=== PATIENT | female | born 1960 | race Caucasian/White ===

== ENCOUNTER 2018-03-17 06:01 | Inpatient (IN) | payer MEDICARE, MEDICAID | END 2018-03-25 17:08 | disposition home health service (06) | LOC: MED 3N 03-22 17:45 → S STAY 06:01 → ICU 2S 15:42 | PROC: 4A023N7 Measurement of Cardiac Sampling and Pressure, Left Heart, Percutaneous Approach (ICD-10-PCS; principal; 2018-03-17 12:05) | PROC: 02B50ZZ Excision of Atrial Septum, Open Approach (ICD-10-PCS; 2018-03-17 12:05) | PROC: 02U Heart and Great Vessels, Supplement (ICD-10-PCS; 2018-03-17 12:05) | PROC: B215YZZ Fluoroscopy of Left Heart using Other Contrast (ICD-10-PCS; 2018-03-17 12:05) | PROC: B211YZZ Fluoroscopy of Multiple Coronary Arteries using Other Contrast (ICD-10-PCS; 2018-03-17 12:05) | PROC: B310YZZ Fluoroscopy of Thoracic Aorta using Other Contrast (ICD-10-PCS; 2018-03-17 12:05) | DX: D17.4 Benign lipomatous neoplasm of intrathoracic organs (principal); J96.00 Acute respiratory failure, unspecified whether with hypoxia or hypercapnia; C92.11 Chronic myeloid leukemia, BCR/ABL-positive, in remission; J44.9 Chronic obstructive pulmonary disease, unspecified; I25.10 Atherosclerotic heart disease of native coronary artery without angina pectoris ==

== ENCOUNTER 2018-06-21 11:46 | Emergency (ER) | payer MEDICARE, MEDICAID ==
[~2018-06-21] VITALS: Ht 167.6 cm; Wt 80.0 kg
[~2018-06-21 11:46] MED LIST: ALBU18HF2 INH; ASPI-1265 PO; ATOR10TA PO; METO25TA6 PO
[2018-06-21 11:54] VITALS: BP 147/97
[2018-06-21] MEDS ORDERED: morphine 4 MG/ML inj SYRINge IM ONE (12:50)
[2018-06-21] MEDS ORDERED: ondansetron 4mg rapidly disintigrating tab PO ONE (12:50)
== END 2018-06-21 14:02 | disposition home or self-care (01) ==
LOC: ER 11:47
DX: G62.89 Other specified polyneuropathies (principal); G89.29 Other chronic pain; Z98.890 Other specified postprocedural states; Z88.6 Allergy status to analgesic agent; Z91.040 Latex allergy status; Z88.2 Allergy status to sulfonamides; Z79.82 Long term (current) use of aspirin; Z79.899 Other long term (current) drug therapy
CPT/HCPCS: 96372; 99283; J2270

== ENCOUNTER 2018-06-27 08:26 | Emergency (ER) | payer MEDICARE, MEDICAID ==
[~2018-06-27] VITALS: Ht 167.6 cm; Wt 71.8 kg
[2018-06-27] MEDS ORDERED: HYDROcodone/acetaminophen 10/325mg tab PO ONE (09:50)
--- NOTE | 2018-06-27 10:23 | NUR ---
pt talking with Jose FRIEND regarding "I don't want a norco...I want morphine...the last time I was here they told me I would get morphine", pt has chronic lower back pain radiating to left leg, increased pain x1 week...."I want a shot of morphine", Jose FRIEND gave verbal order for morphine 4mg IM x1 now
[2018-06-27] MEDS ORDERED: morphine 4 MG/ML inj SYRINge IM ONE (10:30)
[2018-06-27 11:04] VITALS: BP 132/79
== END 2018-06-27 11:00 | disposition home or self-care (01) ==
LOC: ER 08:27
DX: G89.29 Other chronic pain (principal); M54.5 Low back pain; Z88.6 Allergy status to analgesic agent; Z91.040 Latex allergy status; Z88.2 Allergy status to sulfonamides; Z79.82 Long term (current) use of aspirin; Z79.899 Other long term (current) drug therapy; Z98.890 Other specified postprocedural states
CPT/HCPCS: 96372; 99283; J2270

== ENCOUNTER 2018-08-02 12:02 | Emergency (ER) | payer MEDICARE, MEDICAID ==
[~2018-08-02] VITALS: Ht 167.6 cm; Wt 158.0 kg
[2018-08-02 13:22] LABS: ALANINE AMINOTRANSFERASE 24 U/L (12-78); ALBUMIN 3.7 G/DL (3.4-5.0); ALKALINE PHOSPHATASE 89 IU/L (46-116); ANION GAP 5 (8-16); ASPARTATE AMINO TRANSFERASE 13 U/L (10-37); BILIRUBIN,TOTAL 0.2 MG/DL (0.1-1.0); BLOOD UREA NITROGEN 9 MG/DL (7-18); BUN/CREATININE RATIO 14.1 (6.6-38.0); CHLORIDE 104 MMOL/L (99-107); CREATININE 0.64 MG/DL (0.40-0.90); GLUCOSE 91 MG/DL (70-104); PARTIAL THROMBOPLASTIN TIME 28 SECONDS (22-32); SODIUM 135 MMOL/L (135-145); TOTAL CARBON DIOXIDE 26.3 MMOL/L (24-32); TOTAL PROTEIN 7.4 G/DL (6.4-8.2); eGFR > 90 ML/MIN
[2018-08-02 13:32] LABS: BASOPHILS # (AUTO) 0.1 X10'3 (0-0.2); BASOPHILS % (AUTO) 1.5 % (0-1); EOSINOPHILS # (AUTO) 0.1 X10'3 (0-0.9); EOSINOPHILS % (AUTO) 1.3 % (0-6); HEMATOCRIT 43.5 % (35.0-45.0); HEMOGLOBIN 15.3 g/dl (12.0-16.0); LYMPHOCYTES # (AUTO) 1.4 X10'3 (1.1-4.8); LYMPHOCYTES % (AUTO) 15.6 % (21-51); MEAN CORPUSCULAR HEMOGLOBIN 32.2 PG (27.0-31.0); MEAN CORPUSCULAR HGB CONC 35.2 g/dL (33.0-36.5); MEAN CORPUSCULAR VOLUME 91.4 FL (78-98); MEAN PLATELET VOLUME 7.7 FL (7.4-10.4); MONOCYTES # (AUTO) 0.5 X10'3 (0-0.9); MONOCYTES % (AUTO) 5.5 % (2-12); NEUTROPHILS # (AUTO) 6.7 X10'3 (1.8-7.7); NEUTROPHILS % (AUTO) 76.1 % (42-75); PLATELET COUNT 248 X10'3 (140-440); RED BLOOD COUNT 4.76 X10'6 (4.20-5.60); RED CELL DISTRIBUTION WIDTH 15.7 % (11.5-14.5); WHITE BLOOD COUNT 8.8 X10'3 (4.5-11.0)
[2018-08-02 14:11] LABS: CLARITY,URINE CLEAR (Clear); COLOR,URINE YELLOW (Yellow); GLUCOSE, URINE NEGATIVE (Neg); KETONES,URINE NEGATIVE (Neg); LEUKOCYTE ESTERASE ,URINE NEGATIVE (Neg); NITRITES, URINE NEGATIVE (Neg); OCCULT BLOOD,URINE NEGATIVE (Neg); PH,URINE 5.5 (4.8-8.0); PROTEIN,URINE NEGATIVE (Neg); UROBILINOGEN,URINE 0.2 E.U/dL (0.2-1.0)
[2018-08-02 14:19] LABS: UA COLLECTION TYPE CLN CATCH MIDSTREAM
[2018-08-02 14:25] LABS: LIPASE 94 U/L (73-393)
[2018-08-02 15:39] VITALS: BP 144/85
== END 2018-08-02 15:41 | disposition home or self-care (01) ==
LOC: ER 12:03
DX: R10.13 Epigastric pain (principal); R10.12 Left upper quadrant pain; G89.29 Other chronic pain; F17.210 Nicotine dependence, cigarettes, uncomplicated; Z90.49 Acquired absence of other specified parts of digestive tract; Z95.1 Presence of aortocoronary bypass graft; Z98.890 Other specified postprocedural states; Z79.899 Other long term (current) drug therapy; Z88.6 Allergy status to analgesic agent; Z91.040 Latex allergy status
CPT/HCPCS: 36415; 71045; 74176; 80053; 81003; 83690; 84484; 85025; 85610; 85730; 93005; 99284

== ENCOUNTER 2020-05-26 10:10 | Emergency (ER) | payer MEDICARE, MEDICAID ==
[~2020-05-26] VITALS: Ht 167.6 cm; Wt 66.8 kg
[~2020-05-26 10:10] MED LIST changes: +LOP25T PO; -METO25TA6 PO
[2020-05-26] MEDS ORDERED: orphenadrine citrate 60mg/2ml inj. IM ONE (11:10)
[2020-05-26] MEDS ORDERED: traMADol 50MG tablet PO ONE (11:10)
[2020-05-26] MEDS ORDERED: ondansetron 4mg rapidly disintigrating tab PO ONE (13:00)
[2020-05-26] MEDS ORDERED: HYDROcodone/acetaminophen 5mg/325mg tablet PO ONE (13:00)
[2020-05-26] MEDS ORDERED: ACET-1025 PO (13:07)
[2020-05-26] MEDS ORDERED: TRAM50TA2 PO (13:07)
[2020-05-26 13:45] VITALS: BP 139/72
== END 2020-05-26 13:43 | disposition home or self-care (01) ==
LOC: ER 10:10
DX: S32.038A Other fracture of third lumbar vertebra, initial encounter for closed fracture (principal); M54.5 Low back pain; G89.29 Other chronic pain; Z90.89 Acquired absence of other organs; Z98.890 Other specified postprocedural states; Z88.8 Allergy status to other drugs, medicaments and biological substances; Z88.2 Allergy status to sulfonamides; Z91.040 Latex allergy status; Z79.82 Long term (current) use of aspirin; Z79.899 Other long term (current) drug therapy; X58.XXXA Exposure to other specified factors, initial encounter; Y93.89 Activity, other specified; Y92.89 Other specified places as the place of occurrence of the external cause; Y99.8 Other external cause status
CPT/HCPCS: 72100; 96372; 99284; J2360

== ENCOUNTER 2020-08-07 10:24 | Emergency (ER) | payer MEDICARE, MEDICAID ==
[~2020-08-07] VITALS: Ht 167.6 cm; Wt 64.1 kg
[2020-08-07 11:13] LABS: BASOPHILS # (AUTO) 0.1 X10'3 (0-0.2); EOSINOPHILS # (AUTO) 0.1 X10'3 (0-0.9); HEMOGLOBIN 14.6 g/dl (12.0-16.0); LYMPHOCYTES # (AUTO) 1.2 X10'3 (1.1-4.8); LYMPHOCYTES % (AUTO) 7.2 % (21-51); MEAN PLATELET VOLUME 7.1 FL (7.4-10.4)
[2020-08-07 11:15] LABS: BASOPHILS % (AUTO) 0.9 % (0-1); EOSINOPHILS % (AUTO) 0.8 % (0-6); HEMATOCRIT 43.6 % (35.0-45.0); MEAN CORPUSCULAR HEMOGLOBIN 31.2 PG (27.0-31.0); MEAN CORPUSCULAR HGB CONC 33.5 g/dL (33.0-36.5); MEAN CORPUSCULAR VOLUME 93.2 FL (78-98); MONOCYTES # (AUTO) 0.8 X10'3 (0-0.9); MONOCYTES % (AUTO) 4.6 % (2-12); NEUTROPHILS # (AUTO) 14.3 X10'3 (1.8-7.7); NEUTROPHILS % (AUTO) 86.5 % (42-75); PLATELET COUNT 255 X10'3 (140-440); RED BLOOD COUNT 4.68 X10'6 (4.20-5.60); WHITE BLOOD COUNT 16.5 X10'3 (4.5-11.0)
[2020-08-07] MEDS ORDERED: aspirin 325mg tablet PO ONE (11:20)
[2020-08-07] MEDS ORDERED: ipratropium/albuterol 3ml nebule NEB ONE (11:20)
[2020-08-07] MEDS ORDERED: predniSONE 20 mg tablet PO ONE (11:20)
[2020-08-07 11:25] LABS: ALANINE AMINOTRANSFERASE 17 U/L (12-78); ALBUMIN 3.5 G/DL (3.4-5.0); ALBUMIN/GLOBULIN RATIO 0.9 (1.1-1.5); ALKALINE PHOSPHATASE 96 IU/L (46-116); ANION GAP 5 (8-16); ASPARTATE AMINO TRANSFERASE 10 U/L (10-37); BILIRUBIN,TOTAL 0.3 MG/DL (0.1-1.0); BLOOD UREA NITROGEN 10 MG/DL (7-18); BUN/CREATININE RATIO 15.9 (6.6-38.0); CALCIUM 8.8 MG/DL (8.5-10.1); CHLORIDE 101 MMOL/L (99-107); CREATININE 0.63 MG/DL (0.40-0.90); GLUCOSE 106 MG/DL (70-104); POTASSIUM 4.2 MMOL/L (3.5-5.1); SODIUM 136 MMOL/L (135-145); TOTAL CARBON DIOXIDE 29.7 MMOL/L (24-32); TOTAL PROTEIN 7.5 G/DL (6.4-8.2); eGFR > 90 ML/MIN
[2020-08-07] MEDS ORDERED: albuterol 2.5 MG/3 ML nebule CONTNEB PRN (11:45)
[2020-08-07 12:16] LABS: LIPASE < 50 U/L (73-393)
[2020-08-07 12:34] LABS: D-DIMER 1.27 MG/L FEU (0-0.50)
[2020-08-07] MEDS ORDERED: iohexol 350MG/ML 100ml bottle IV ONE (13:17)
[2020-08-07] MEDS ORDERED: traMADol 50MG tablet PO ONE (14:35)
[2020-08-07] MEDS ORDERED: LORazepam 2 mg/ml vial IV ONE (14:35)
[2020-08-07 14:52] LABS: ABG BASE EXCESS -2.5 mmol/L (-2.0-2.0); ABG HCO3 22.7 mmol/L (22.0-26.0); ABG OXYGEN SATURATION 87.6 % (94-97); ABG PCO2 (T) 40.1 mmHg (32.0-45.0); ABG PO2 (T) 47.9 mmHg (75.0-100.0); ALLEN'S TEST POSITIVE; FCOHb 3.7 % (0.0-3.9); FMetHb 0.1 % (0.0-1.5); FO2Hb 84.3 % (94-97); PATIENT TEMPERATURE 36.6; TOTAL HEMOGLOBIN 14.3 G/dl (12.0-16.0)
[2020-08-07 15:14] VITALS: BP 111/67
[2020-08-07] MEDS ORDERED: PRED20TA PO (15:35)
[2020-08-07] MEDS ORDERED: AZIT-72 PO (15:35)
--- NOTE | 2020-08-07 16:34 | NUR ---
PT ON MED WAIT, ADVISED NOT TO DRIVE AFTER MEDICATION GIVEN.
== END 2020-08-07 17:04 | disposition home or self-care (01) ==
LOC: ER 10:26
DX: J44.1 Chronic obstructive pulmonary disease with (acute) exacerbation (principal); Z20.822 Contact with and (suspected) exposure to COVID-19; F17.210 Nicotine dependence, cigarettes, uncomplicated; I25.10 Atherosclerotic heart disease of native coronary artery without angina pectoris; G89.29 Other chronic pain; Z90.49 Acquired absence of other specified parts of digestive tract; Z95.1 Presence of aortocoronary bypass graft; Z98.891 History of uterine scar from previous surgery; Z88.6 Allergy status to analgesic agent; Z88.2 Allergy status to sulfonamides; Z91.040 Latex allergy status; Z79.82 Long term (current) use of aspirin; Z79.2 Long term (current) use of antibiotics; Z79.899 Other long term (current) drug therapy; Z85.6 Personal history of leukemia
CPT/HCPCS: 36415; 36600; 71045; 71275; 80053; 82803; 83690; 83880; 84484; 85018; 85025; 85379; 87635; 94640; 96374; 99285; C9803; J2060; J7512; Q9967; 94760; A7015

== ENCOUNTER 2020-09-28 12:53 | Emergency (ER) | payer MEDICARE, MEDICAID ==
[~2020-09-28] VITALS: Ht 167.6 cm; Wt 65.9 kg
[2020-09-28 13:27] LABS: BASOPHILS # (AUTO) 0.1 X10'3 (0-0.2); EOSINOPHILS # (AUTO) 0.1 X10'3 (0-0.9); EOSINOPHILS % (AUTO) 1.1 % (0-6); HEMATOCRIT 45.5 % (35.0-45.0); HEMOGLOBIN 15.2 g/dl (12.0-16.0); LYMPHOCYTES # (AUTO) 1.1 X10'3 (1.1-4.8); LYMPHOCYTES % (AUTO) 13.9 % (21-51); MEAN CORPUSCULAR HEMOGLOBIN 31.7 PG (27.0-31.0); MEAN CORPUSCULAR HGB CONC 33.5 g/dL (33.0-36.5); MEAN CORPUSCULAR VOLUME 94.4 FL (78-98); MEAN PLATELET VOLUME 7.5 FL (7.4-10.4); MONOCYTES # (AUTO) 0.6 X10'3 (0-0.9); MONOCYTES % (AUTO) 7.7 % (2-12); NEUTROPHILS # (AUTO) 5.8 X10'3 (1.8-7.7); NEUTROPHILS % (AUTO) 76.3 % (42-75); PLATELET COUNT 240 X10'3 (140-440); RED BLOOD COUNT 4.81 X10'6 (4.20-5.60); RED CELL DISTRIBUTION WIDTH 15.6 % (11.5-14.5); WHITE BLOOD COUNT 7.6 X10'3 (4.5-11.0)
[2020-09-28 13:42] LABS: ALANINE AMINOTRANSFERASE 13 U/L (12-78); ALBUMIN 3.4 G/DL (3.4-5.0); ALBUMIN/GLOBULIN RATIO 0.9 (1.1-1.5); ALKALINE PHOSPHATASE 90 IU/L (46-116); ANION GAP 10 (8-16); ASPARTATE AMINO TRANSFERASE 9 U/L (10-37); BILIRUBIN,TOTAL 0.2 MG/DL (0.1-1.0); BLOOD UREA NITROGEN 7 MG/DL (7-18); BUN/CREATININE RATIO 9.1 (6.6-38.0); CALCIUM 8.5 MG/DL (8.5-10.1); CHLORIDE 102 MMOL/L (99-107); CREATININE 0.77 MG/DL (0.40-0.90); GLUCOSE 112 MG/DL (70-104); POTASSIUM 3.3 MMOL/L (3.5-5.1); SODIUM 141 MMOL/L (135-145); TOTAL CARBON DIOXIDE 28.9 MMOL/L (24-32); TOTAL PROTEIN 7.3 G/DL (6.4-8.2); eGFR 76 ML/MIN
[2020-09-28] MEDS ORDERED: ondansetron 4mg rapidly disintigrating tab PO ONE (15:55)
[2020-09-28] MEDS ORDERED: morphine 4 MG/ML inj SYRINge IM ONE (15:55)
[2020-09-28 16:11] LABS: LIPASE 64 U/L (73-393)
[2020-09-28 17:05] LABS: CLARITY,URINE SLIGHTLY CLOUDY (Clear); COLOR,URINE YELLOW (Yellow); GLUCOSE, URINE NEGATIVE (Neg); KETONES,URINE NEGATIVE (Neg); LEUKOCYTE ESTERASE ,URINE NEGATIVE (Neg); NITRITES, URINE NEGATIVE (Neg); OCCULT BLOOD,URINE NEGATIVE (Neg); PH,URINE 5.5 (4.8-8.0); PROTEIN,URINE TRACE mg/dl (Neg)
[2020-09-28 17:09] LABS: UA COLLECTION TYPE STRAIGHT CATH
[2020-09-28 17:18] LABS: MUCUS STRANDS MANY /LPF (Neg); SQUAMOUS EPITHELIAL CELL,UR FEW /LPF (FEW)
[2020-09-28 17:19] LABS: BACTERIA,URINE FEW /HPF (Neg); RBC,URINE 0-2 /HPF (0-2); WBC,URINE 0-4 /HPF (0-4)
[2020-09-28] MEDS ORDERED: NYST1000 PO (17:47)
[2020-09-28 18:03] VITALS: BP 111/70
== END 2020-09-28 18:06 | disposition home or self-care (01) ==
LOC: ER 12:53
DX: R09.1 Pleurisy (principal); B37.0 Candidal stomatitis; R10.12 Left upper quadrant pain; G89.29 Other chronic pain; Z90.89 Acquired absence of other organs; Z98.890 Other specified postprocedural states; Z88.2 Allergy status to sulfonamides; Z88.8 Allergy status to other drugs, medicaments and biological substances; Z79.82 Long term (current) use of aspirin; Z91.040 Latex allergy status; Z79.899 Other long term (current) drug therapy
CPT/HCPCS: 36415; 71045; 80053; 81001; 83690; 83880; 84484; 85025; 93005; 96372; 99285; J2270

== ENCOUNTER 2021-04-02 14:34 | Emergency (ER) | payer MEDICARE, MEDICAID ==
[~2021-04-02] VITALS: Ht 162.6 cm; Wt 68.2 kg
[2021-04-02] MEDS ORDERED: dexamethasone sod phosphate 10mg/ml inj IV STA (14:56)
[2021-04-02 15:46] LABS: ALANINE AMINOTRANSFERASE 11 U/L (12-78); ALBUMIN 3.2 G/DL (3.4-5.0); ALBUMIN/GLOBULIN RATIO 0.8 (1.1-1.5); ALKALINE PHOSPHATASE 93 IU/L (46-116); ANION GAP 0 (8-16); ASPARTATE AMINO TRANSFERASE 10 U/L (10-37); BASOPHILS # (AUTO) 0.1 X10'3 (0-0.2); BASOPHILS % (AUTO) 1.6 % (0-1); BILIRUBIN,TOTAL 0.2 MG/DL (0.1-1.0); BLOOD UREA NITROGEN 12 MG/DL (7-18); BUN/CREATININE RATIO 18.2 (6.6-38.0); CALCIUM 8.8 MG/DL (8.5-10.1); CHLORIDE 100 MMOL/L (99-107); CREATININE 0.66 MG/DL (0.40-0.90); EOSINOPHILS # (AUTO) 0.3 X10'3 (0-0.9); EOSINOPHILS % (AUTO) 3.4 % (0-6); GLUCOSE 127 MG/DL (70-104); HEMATOCRIT 44.3 % (35.0-45.0); HEMOGLOBIN 14.9 g/dl (12.0-16.0); LYMPHOCYTES # (AUTO) 1.3 X10'3 (1.1-4.8); LYMPHOCYTES % (AUTO) 14.5 % (21-51); MEAN CORPUSCULAR HEMOGLOBIN 31.8 PG (27.0-31.0); MEAN CORPUSCULAR HGB CONC 33.8 g/dL (33.0-36.5); MEAN CORPUSCULAR VOLUME 94.2 FL (78-98); MEAN PLATELET VOLUME 7.1 FL (7.4-10.4); MONOCYTES # (AUTO) 0.6 X10'3 (0-0.9); MONOCYTES % (AUTO) 6.4 % (2-12); NEUTROPHILS # (AUTO) 6.7 X10'3 (1.8-7.7); NEUTROPHILS % (AUTO) 74.1 % (42-75); PLATELET COUNT 224 X10'3 (140-440); POTASSIUM 4.4 MMOL/L (3.5-5.1); RED CELL DISTRIBUTION WIDTH 14.9 % (11.5-14.5); SODIUM 138 MMOL/L (135-145); TOTAL CARBON DIOXIDE 38.2 MMOL/L (24-32); TOTAL PROTEIN 7.3 G/DL (6.4-8.2); eGFR > 90 ML/MIN
[2021-04-02 15:58] LABS: ABG BASE EXCESS 8.3 mmol/L (-2.0-2.0); ABG HCO3 36.9 mmol/L (22.0-26.0); ABG OXYGEN SATURATION 86.1 % (94-97); ABG PO2 (T) 46.1 mmHg (75.0-100.0); ALLEN'S TEST POSITIVE; FCOHb 4.8 % (0.0-3.9); FLOW 3 L/min; FMetHb 0.3 % (0.0-1.5); FO2Hb 81.7 % (94-97); TOTAL HEMOGLOBIN 15.4 G/dl (12.0-16.0)
[2021-04-02] MEDS ORDERED: ipratropium/albuterol 3ml nebule NEB ONE (16:15)
[2021-04-02] MEDS ORDERED: diphenhydrAMINE 50 mg/ml inj IM ONE (16:25)
[2021-04-02] MEDS ORDERED: haloperidol lactate 5mg/ml inj IM ONE (16:25)
[2021-04-02] MEDS ORDERED: LORazepam 2 mg/ml vial IM ONE (16:25)
[2021-04-02 16:41] LABS: D-DIMER 2.53 MG/L FEU (0-0.50)
[2021-04-02] MEDS ORDERED: iohexol 350MG/ML 100ml bottle IV ONE (18:02)
[2021-04-02 20:30] VITALS: BP 124/83
[2021-04-02] MEDS ORDERED: temazepam 15mg capsule PO PRN (21:00)
[2021-04-02] MEDS ORDERED: azithromycin/NS 500mg/250ml 250 ML IV ONE (21:00)
[2021-04-02] MEDS ORDERED: CefTRIAXone 2gm/D5W 50ml BAG 50 ML IV ONE (21:00)
[2021-04-02] MEDS ORDERED: LORazepam 2 mg/ml vial IV ONE (21:25)
--- NOTE | 2021-04-02 21:57 | NUR ---
Arrived at bedside to draw ABG as planned after patient being on bipap for 2 hours. Patient has removed mask and refuses to wear bipap. Developments discussed with Dr. Stoddard. Addendum: 04/02/21 at 2203 by Yogesh Chambers RT Amended: Links added.
[2021-04-02] MEDS ORDERED: bisacodyl 10mg suppository rectal RC PRN (22:00)
[2021-04-02] MEDS ORDERED: magnesium hydroxide 30ml (MOM) UD suspension PO PRN (22:00)
[2021-04-02] MEDS ORDERED: normal saline 1000ml 1,000 ML IV SCH (22:00)
[2021-04-02] MEDS ORDERED: ipratropium/albuterol 3ml nebule NEB PRN (22:00)
[2021-04-02] MEDS ORDERED: diphenhydrAMINE 25mg capsule PO PRN (22:00)
[2021-04-02] MEDS ORDERED: ondansetron 4mg rapidly disintigrating tab PO PRN (22:00)
[2021-04-02] MEDS ORDERED: diphenhydrAMINE 50 mg/ml inj IV PRN (22:00)
[2021-04-02] MEDS ORDERED: acetaminophen 325mg tablet PO PRN ×2 (22:00)
[2021-04-02] MEDS ORDERED: ondansetron/PF 4mg/2ml inj IV PRN (22:00)
[2021-04-02] MEDS ORDERED: morphine 2 MG/ML inj. syringe IV PRN ×2 (22:00)
[2021-04-02] MEDS ORDERED: mag hydrox/Alum hydrox/simeth 30ml oral suspension PO PRN (22:00)
[2021-04-02] MEDS ORDERED: HYDROcodone/acetaminophen 5mg/325mg tablet PO PRN (22:00)
[2021-04-02] MEDS ORDERED: ALBU18HF2 INH (22:10)
[2021-04-02] MEDS ORDERED: PRED20TA PO (22:10)
[2021-04-02] MEDS ORDERED: DOXY100C43 PO (22:10)
--- NOTE | 2021-04-02 22:17 | NUR ---
Patient took off Bipap, leads, BP cuff and was trying to take out IV. I was alerted by another nurse. Upon entering the room, the patient told me she wasn't doing this anymore. She wanted to just go home, she couldn't wear the Bipap. RT was at the bedside and had alerted Dr. Stoddard, he said ok to take off Bipap and put O2 back on. Patient still wanted to leave AMA, all considerations including were reviewed with her. Patient ambulated out of ER to wait for her taxi.
[2021-04-03] MEDS ORDERED: azithromycin/NS 500mg/250ml 250 ML IV SCH (08:00)
[2021-04-03] MEDS ORDERED: docusate sod 100mg capsule PO SCH (08:00)
[2021-04-03] MEDS ORDERED: heparin, porcine 5000 units/ml vial SQ SCH (08:00)
[2021-04-03] MEDS ORDERED: CefTRIAXone/D5W-Rocephin 1gm 50 ML IV SCH (21:00)
== END 2021-04-02 22:18 | disposition left against medical advice (07) ==
LOC: ER 14:34
DX: J44.1 Chronic obstructive pulmonary disease with (acute) exacerbation (principal); Z20.822 Contact with and (suspected) exposure to COVID-19; R06.03 Acute respiratory distress; E87.3 Alkalosis; R09.02 Hypoxemia; J20.9 Acute bronchitis, unspecified; I25.10 Atherosclerotic heart disease of native coronary artery without angina pectoris; F17.210 Nicotine dependence, cigarettes, uncomplicated; G89.29 Other chronic pain; E78.00 Pure hypercholesterolemia, unspecified; Z85.6 Personal history of leukemia; Z87.19 Personal history of other diseases of the digestive system; Z72.89 Other problems related to lifestyle; Z90.49 Acquired absence of other specified parts of digestive tract; Z95.5 Presence of coronary angioplasty implant and graft; Z98.891 History of uterine scar from previous surgery; Z88.8 Allergy status to other drugs, medicaments and biological substances; Z88.2 Allergy status to sulfonamides; Z91.040 Latex allergy status; Z79.82 Long term (current) use of aspirin
CPT/HCPCS: 36415; 36600; 71045; 71275; 74174; 80053; 82803; 83605; 83880; 85018; 85025; 85379; 87040; 87635; 93005; 96374; 99291; C9803; J1100; Q9967; 94660; 94760